=== PATIENT | female | born 1995 | race Two or more races ===

== ENCOUNTER 2017-06-28 23:18 | Emergency (ER) | payer SELFPAY ==
[2017-06-28 23:27] VITALS: RESP 18; TEMP 98.2
--- NOTE | 2017-06-28 23:46 | ED PDOC ---
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 PT was found walking towards [place] with unsteady gait. Pt denies pain and states she "just wants to go home". Pt denies drug use. Past Medical History Reviewed: Historical Data, Nursing Documentation, Vital Signs Vital Signs: Last Vital Signs Temp 98.2 F 06/28/17 23:25 Pulse 103 H 06/28/17 23:25 Resp 18 06/28/17 23:25 BP 122/84 06/28/17 23:25 Pulse Ox 98 06/28/17 23:25 - Medical History PMH: No Chronic Diseases - Surgical History Surgical History: No Surg Hx - Family History Family History: States: Unknown Family Hx - Living Arrangements Living Arrangements: With Family - Social History Current smoker - smoking cessation education provided: No Alcohol: Occasional Drugs: Denies - Allergies Allergies/Adverse Reactions: Allergies Allergy/AdvReac Type Severity Reaction Status Date / Time acetaminophen [From Tylenol] Allergy RASH Verified 06/28/17 23:25 iodine Allergy RASH Verified 06/28/17 23:25 Review of Systems ROS Statement: Except As Marked, All Systems Reviewed And Found Negative Constitutional: Negative for: Fever, Chills Cardiovascular: Negative for: Chest Pain Respiratory: Negative for: Cough, Shortness of Breath Gastrointestinal: Negative for: Nausea, Vomiting, Abdominal Pain Physical Exam - Reviewed Nursing Documentation Reviewed: Yes Vital Signs Reviewed: Yes - Physical Exam Appears: Positive for: Well, Non-toxic, No Acute Distress Head Exam: Positive for: ATRAUMATIC, NORMAL INSPECTION, NORMOCEPHALIC Skin: Positive for: Warm. Negative for: Normal Color (Ecchymosis left knee and left forearm) Eye Exam: Positive for: Normal appearance ENT: Positive for: Normal ENT Inspection Neck: Positive for: Normal, Painless ROM Cardiovascular/Chest: Positive for: Regular Rate, Rhythm Respiratory: Positive for: Normal Breath Sounds. Negative for: Accessory Muscle Use, Respiratory Distress Gastrointestinal/Abdominal: Positive for: Normal Exam, Bowel Sounds, Soft. Negative for: Tenderness Back: Positive for: Normal Inspection Extremity: Positive for: Normal ROM Neurologic/Psych: Positive for: Alert, Oriented - ECG O2 Sat by Pulse Oximetry: 98 Medical Decision Making Medical Decision Making: PT undressed and in yellow gown/sock. Pt states she would like to be left alone. Endorsed to [facility] pending accuCheck and clinical sobriety. Disposition - Clinical Impression Clinical Impression: Alcohol abuse with intoxication - Patient ED Disposition Is Patient to be Admitted: Transfer of Care - Disposition Disposition: Transfer of Care Disposition Time: 23:56 Condition: STABLE
--- NOTE | 2017-06-29 04:54 | ED PDOC ---
- ECG O2 Sat by Pulse Oximetry: 98 Disposition - Clinical Impression Clinical Impression: Alcohol abuse with intoxication - POA Present On Arrival: None - Disposition Disposition: Routine/Home Disposition Time: 06:00 Condition: STABLE Instructions: Alcohol Poisoning (DC) Forms: [facility] ([place])
[2017-06-29 05:37] VITALS: PULSE 94
[2017-06-29 06:03] VITALS: BP 117/65; O2SAT 99
== END 2017-06-29 06:09 | disposition home or self-care (01) ==
LOC: H.ER 23:18
DX: F10.129 Alcohol abuse with intoxication, unspecified (principal)